=== PATIENT | male | born 1965 | race Two or more races ===

== ENCOUNTER → 2017-12-16 | Day surgery (SDC) | payer BC ==
[2017-12-09 16:26] VITALS: BMI 25.7
[~2017-12-16] MED LIST: LIDOCAINE HCL/PF 2% SDV 5ML VIAL ONE; PROPOFOL 20 ML ONE
[2017-12-16 09:36] VITALS: TEMP 98.2
[2017-12-16 13:09] VITALS: BP 112/72; PULSE 66
== END | disposition home or self-care (01) ==
LOC: FASU-ENDO 08:16
PROVIDERS: ATTEND Internal Medicine Gastroenterology
PROC: 0DJD8ZZ Inspection of Lower Intestinal Tract, Via Natural or Artificial Opening Endoscopic (ICD-10-PCS; principal; 2017-12-16 09:11)
DX: Z12.11 Encounter for screening for malignant neoplasm of colon (principal)